=== PATIENT | female | born 1985 | race Hispanic/Latino ===

== ENCOUNTER 2019-09-21 17:19 | Emergency (ER) | payer OTHER, SELFPAY ==
--- NOTE | 2019-09-21 17:40 | ER ---
Nurse's Notes [facility] Name: Chitra Miller Age: 34 yrs Sex: Female : 1985 Arrival Date: 09/21/2019 Time: 17:22 Bed 17 Private MD: Diagnosis: Rash and other nonspecific skin eruption Presentation: 09/21 17:25 Presenting complaint: Patient states: I have a rash on my left leg, I just noticed it. la1 Transition of care: patient was not received from another setting of care. Onset of symptoms was September 21, 2019. Risk Assessment: Do you want to hurt yourself or someone else? Patient reports no desire to harm self or others. Initial Sepsis Screen: Does the patient meet any 2 criteria? No. Patient's initial sepsis screen is negative. Does the patient have a suspected source of infection? No. Patient's initial sepsis screen is negative. Care prior to arrival: None. 17:25 Method Of Arrival: Ambulatory la1 17:25 Acuity: RAYSA 4 la1 Historical: - Allergies: 17:24 No Known Allergies; la1 - PMHx: 17:24 Diabetes - NIDDM; la1 - Immunization history:: Adult Immunizations up to date, Adult Immunizations. - Social history:: Smoking status: Patient/guardian denies using tobacco. - Ebola Screening: : No symptoms or risks identified at this time. Screenin:36 Abuse screen: Denies threats or abuse. Nutritional screening: No deficits noted. em Tuberculosis screening: No symptoms or risk factors identified. Fall Risk None identified. Assessment: 17:26 General: Appears in no apparent distress. comfortable, Behavior is calm, cooperative, em Denies fever. Pain: Denies pain. Neuro: Level of Consciousness is awake, alert, obeys commands, Oriented to person, place, time, situation, Appropriate for age. Cardiovascular: Capillary refill < 3 seconds Patient's skin is warm and dry. Respiratory: Airway is patent Respiratory effort is even, unlabored, Respiratory pattern is regular, symmetrical. Derm: Skin is intact, is healthy with good turgor, Skin is pink, warm \T\ dry. Rash noted that is itchy, papular, on right leg and left leg. Musculoskeletal: Capillary refill < 3 seconds, Range of motion: intact in all extremities. Vital Signs: 17:25 Resp 18; Weight 92.99 kg; Height 5 ft. 3 in. (160.02 cm); la1 17:25 Pulse 89; Resp 16; Temp 98.1; Pulse Ox 100% on R/A; la1 17:26 BP 140 / 74; la1 17:25 Body Mass Index 36.31 (92.99 kg, 160.02 cm) la1 ED Course: 17:22 Patient arrived in ED. mr 17:25 Triage completed. la1 17:25 Arm band placed on left wrist. la1 17:26 Stan Rivas NP is PHCP. pm1 17:26 Claudia Bhardwaj MD is Attending Physician. pm1 17:31 Johan Bailon LVN is Primary Nurse. em 17:36 Patient has correct armband on for positive identification. Placed in gown. Bed in low em position. Call light in reach. 17:36 No provider procedures requiring assistance completed. Patient did not have IV access em during this emergency room visit. Administered Medications: No medications were administered Outcome: 17:39 Discharge ordered by MD. pm1 17:50 Discharged to home ambulatory, with family. em 17:50 Condition: good 17:50 Discharge instructions given to patient, family, Instructed on discharge instructions, follow up and referral plans. medication usage, Demonstrated understanding of instructions, follow-up care, medications, Prescriptions given X 2. 17:50 Patient left the ED. em Signatures: Amber Brody Johan Bailon LVN LVN em Sloan Dangelo RN RN la1 Stan Rivas NP TAR MAN pm1
--- NOTE | 2019-09-21 17:40 | EDPHYS ---
Physician Documentation [facility] Name: Chitra Miller Age: 34 yrs Sex: Female : 1985 Arrival Date: 09/21/2019 Time: 17:22 Bed 17 Private MD: ED Physician Claudia Bhardwaj HPI: 09/21 17:37 This 34 yrs old Female presents to ER via Ambulatory with complaints of Rash. pm1 17:37 The patient's rash thought to be caused by an unknown cause. The rash is located on the pm1 right leg and left leg. The rash can be described as papular. Onset: The symptoms/episode began/occurred just noticed today. Associated signs and symptoms: Pertinent positives: itching, Pertinent negatives: fever, swelling of lips, swelling of throat, swelling of tongue. Severity of symptoms: in the emergency department the symptoms are unchanged. Treatment given at home: none. The patient has not experienced similar symptoms in the past. Historical: - Allergies: 17:24 No Known Allergies; la1 - PMHx: 17:24 Diabetes - NIDDM; la1 - Immunization history:: Adult Immunizations up to date, Adult Immunizations. - Social history:: Smoking status: Patient/guardian denies using tobacco. - Ebola Screening: : No symptoms or risks identified at this time. ROS: 17:37 Constitutional: Negative for fever, chills, and weight loss, Eyes: Negative for injury, pm1 pain, redness, and discharge, ENT: Negative for injury, pain, and discharge, Neck: Negative for injury, pain, and swelling, Cardiovascular: Negative for chest pain, palpitations, and edema, Respiratory: Negative for shortness of breath, cough, wheezing, and pleuritic chest pain, Abdomen/GI: Negative for abdominal pain, nausea, vomiting, diarrhea, and constipation, Back: Negative for injury and pain, MS/Extremity: Negative for injury and deformity. 17:37 Neuro: Negative for headache, weakness, numbness, tingling, and seizure. 17:37 Skin: Positive for rash, of the right leg and left leg, Negative for abscesses. Exam: 17:37 Constitutional: This is a well developed, well nourished patient who is awake, alert, pm1 and in no acute distress. Chest/axilla: Normal chest wall appearance and motion. Nontender with no deformity. No lesions are appreciated. Cardiovascular: Regular rate and rhythm with a normal S1 and S2. No gallops, murmurs, or rubs. Normal PMI, no JVD. No pulse deficits. Respiratory: Lungs have equal breath sounds bilaterally, clear to auscultation and percussion. No rales, rhonchi or wheezes noted. No increased work of breathing, no retractions or nasal flaring. Back: No spinal tenderness. No costovertebral tenderness. Full range of motion. 17:37 Skin: Appearance: normal except for affected area, consistent with folliculitis, on the left leg and right leg. Vital Signs: 17:25 Resp 18; Weight 92.99 kg; Height 5 ft. 3 in. (160.02 cm); la1 17:25 Pulse 89; Resp 16; Temp 98.1; Pulse Ox 100% on R/A; la1 17:26 BP 140 / 74; la1 17:25 Body Mass Index 36.31 (92.99 kg, 160.02 cm) la1 MDM: 17:27 Patient medically screened. pm1 17:37 Data reviewed: vital signs. Data interpreted: Pulse oximetry: on room air is 100 %. pm1 Interpretation: normal. Counseling: I had a detailed discussion with the patient and/or guardian regarding: the historical points, exam findings, and any diagnostic results supporting the discharge/admit diagnosis, the need for outpatient follow up, to return to the emergency department if symptoms worsen or persist or if there are any questions or concerns that arise at home. 17:37 ED course: Patient shaved legs 2 weeks ago with hair appearing to just emerge, pm1 impression folliculitis from ingrown hairs. Administered Medications: No medications were administered Disposition: 09/22 16:48 Co-signature as Attending Physician, Claudia Bhardwaj MD. ma2 Disposition: 09/21/19 17:39 Discharged to Home. Impression: Rash and other nonspecific skin eruption. - Condition is Stable. - Discharge Instructions: Folliculitis. - Prescriptions for Bactroban 2 % Topical Ointment - Apply to affected area 1 application by TOPICAL route every 12 hours; 30 gram. Cephalexin 500 mg Oral Capsule - take 1 capsule by ORAL route every 6 hours for 10 days; 40 capsule. - Medication Reconciliation Form, Thank You Letter, Antibiotic Education, Prescription Opioid Use form. - Follow up: Emergency Department; When: As needed; Reason: Worsening of condition. Follow up: Private Physician; When: 2 - 3 days; Reason: Recheck today's complaints, Continuance of care, Re-evaluation by your physician. - Problem is new. - Symptoms have improved. Signatures: Johan Bailon, FURNITURE DIPPER FURNITURE DIPPER Sloan Sterling RN RN la1 Stan Rivas, FURNACE OPERATOR OIL OR GAS FURNACE OPERATOR OIL OR GAS pm1 Claudia Bhardwaj MD MD ma2 Corrections: (The following items were deleted from the chart) 09/21 17:50 17:39 09/21/2019 17:39 Discharged to Home. Impression: Rash and other nonspecific skin em eruption. Condition is Stable. Forms are Medication Reconciliation Form, Thank You Letter, Antibiotic Education, Prescription Opioid Use. Follow up: Emergency Department; When: As needed; Reason: Worsening of condition. Follow up: Private Physician; When: 2 - 3 days; Reason: Recheck today's complaints, Continuance of care, Re-evaluation by your physician. Problem is new. Symptoms have improved. pm1
[2019-09-21 17:56] VITALS: BP 140/74; TEMP 98.1; O2SAT 100
== END 2019-09-21 17:50 | disposition home or self-care (01) ==
LOC: ER 17:19
DX: R21 Rash and other nonspecific skin eruption (principal)
CPT/HCPCS: 99282

== ENCOUNTER 2020-05-16 12:57 | Emergency (ER) | payer BC, OTHER ==
--- OUTSIDE RECORDS SUMMARY | 2020-05-16 12:59 | XMS REPORT | Continuity of Care Document ---
:1985 Author Organization [facility] t Address [address] [place] [address] Care Team Providers Name Role Phone Tyrel Feliz Attending Clinician Doctor Unassigned, Evans Attending Clinician Unavailable Christian Guzmán DO Attending Clinician Problems This patient has no known problems. Allergies, Adverse Reactions, Alerts This patient has no known allergies or adverse reactions. Medications This patient has no known medications. Procedures This patient has no known procedures. Encounters Start End Encounter Admission Attending Care Care Encounter Source Date/Time Date/Time Type Type Clinicians Facility Department ID 2020-05-13 2020-05-13 Emergency LEVAR Minor [id number] 20:50:15 22:16:00 Tyrel Ma [id number] [place] [id number] [place] [id number] 2020-05-13 2020-05-13 Orders Doctor GEIGER [id number] 00:00:00 00:00:00 Only UnassKAILA benjamin [id number] Evans [facility] [id number] 2020-01-14 2020-01-14 Emergency LEVAR Guzmán [id number] 19:56:52 20:59:00 Vanessa Ma [id number] [place] [id number] [place] [id number] 2020-01-14 2020-01-14 Amanda GEIG[place] [id number] 00:00:00 00:00:00 Only Unassigned, KAILA [id number] Evans [facility] [id number] Results This patient has no known results.
--- OUTSIDE RECORDS SUMMARY | 2020-05-16 12:59 | XMS REPORT | Summary of Care ---
:1985 Author Organization [facility] - Health Address [address] [place] [address] Care Team Providers Name Role Phone Pcp, Patient Does Not Have A Primary Care Provider +[id number] 0-0000 Encounter Details Date Type Department Care Team Description 05/13/2020 Orders Only [facility] Doctor Unassigned, No [address] [facility] [place] [address] [address] [place] [address] Allergies No Known Allergiesdocumented as of this encounter (statuses as of 05/13/2020) Medications Medication Sig Dispensed Refills Start Date End Date Status insulin detemir inject under the 0 Active (LEVEMIR FLEXPEN SC) skin. 25/iron Take by mouth. 0 Active fum/folic/dha (-1 ORAL) documented as of this encounter (statuses as of 05/13/2020) Active Problems No known active problemsdocumented as of this encounter (statuses as of 05/13/2020) Social History Tobacco Use Types Packs/Day Years Used Date Never Assessed Sex Assigned at Date Recorded Not on file Job Start Date Occupation Industry Not on file Not on file Not on file Travel History Travel Start Travel End No recent travel history available. documented as of this encounter Last Filed Vital Signs Not on filedocumented in this encounter Plan of Treatment Health Maintenance Due Date Last Done Comments VARICELLA VACCINES (1 of 2 - 1987 2-dose childhood series) DTaP,Tdap,and Td Vaccines (1 - 1997 Tdap) Depression Screening 1998 PAP SMEAR 2007 INFLUENZA VACCINE (Season Ended) 2020 PNEUMOCOCCAL 0-64 YEARS COMBINED Aged Out No longer eligible based on SERIES patient's age to complete this topic documented as of this encounter Procedures Procedure Name Priority Date/Time Associated Diagnosis Comme nts ASSIGNMENT OF BENEFITS Routine 05/13/2020 8:38 PM CDT documented in this encounter Results Not on filedocumented in this encounter Insurance Payer Benefit Plan Subscriber ID Effective Dates Phone Address Type / Group [facility] [id number] 2016-11/11/ [phone] [address] PPO/POS [place] [id number] [place] [address] documented as of this encounter
--- OUTSIDE RECORDS SUMMARY | 2020-05-16 13:00 | XMS REPORT | Summary of Care ---
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 25/iron Take by mouth. 0 Active fum/folic/dha (-1 ORAL) clindamycin 300 mg Take 1 capsule 21 capsule 0 05/13/202007/2020 Active capsuleIndications: by mouth 3 Cellulitis of lower (three) times extremity, daily for 7 unspecified days. laterality documented as of this encounter (statuses as [...] Travel End No recent travel history available. COVID-19 Exposure Response Date Recorded In the last month, have you been in contact with No / Unsure 05/13/2020 8:44 PM CDT someone who was confirmed or suspected to have Coronavirus / COVID-19? documented as of this encounter Last Filed Vital Signs Vital Sign Reading Time Taken Comments Blood Pressure 135/80 05/13/2020 8:47 PM CDT Pulse 104 05/13/2020 8:47 PM CDT Temperature 37.3 C (99.2 F) 05/13/2020 8:47 PM CDT Respiratory Rate 16 05/13/2020 8:47 PM CDT Oxygen Saturation 98% 05/13/2020 8:47 PM CDT Inhaled Oxygen Concentration - - Weight 88.9 kg (196 lb) 05/13/2020 8:47 PM CDT Height 160 cm (5' 3") 05/13/2020 8:47 PM CDT Body Mass Index 34.72 05/13/2020 8:47 PM CDT documented in this encounter Discharge Instructions Tyrel Ryan FNP - 05/13/2020DIAGNOSIS 1. Rash - Ecezema 2. Cellulitis NO LIFE-THREATENING FINDINGS ON TODAY'S EXAM. PROCEDURES IN THE ER TODAY: None MEDICATIONS ADMINISTERED IN THE ER TODAY: Benadryl YOUR PRESCRIPTIONS AND [id number] MEDICATION RECOMMENDATIONS: Clindamycin You can use over the counter benadryl for itching SPECIAL CARE INSTRUCTIONS: Keep the skin clean, use moisturizer to help itching as dry skin make itching worse Take medications with food FOLLOW-UP RECOMMENDATIONS: RECOMMEND FOLLOW-UP WITH ob and gyne specialist and dermatology in 1 week TO FOLLOW-UP WITHIN THE [facility], TRY THESE OPTIONS (CLINIC APPOINTMENTS AVAILABLE ON [id number] BASIS): 1. SCHEDULE AN APPOINTMENT ONLINE AT WWW[facility] 2. OR CALL THE [facility] ACCESS C[facility] AT OR 3. OR CALL YOUR [facility] PHYSICIAN'S OFFICE DIRECTLY IF YOU ARE ALREADY AN ESTABLISHED [facility] PATIENT. OR, YOU MAY FOLLOW-UP WITH A PROVIDER OF YOUR CHOICE, SUCH : 1. A PHYSICIAN OF YOUR CHOICE 2. [facility], . LOCATIONS IN [facility] ER 3. [facility], [address] [place], [place]; [phone] RETURN TO ER FOR WORSENING OF SYMPTOMS. Fever, worsening pain, swelling or itching or any other concerning symptoms./ AttachmentsThe following attachments cannot be sent through Care Everywhere. Cellulitis, Discharge Instructions for (Libyan)Skin Infection, Cellulitis (Libyan)Dermatitis (Eczema),Managing Atopic (Libyan)documented in this encounter Plan of Treatment Name Type Priority Associated Diagnoses Order S chedule WOUND/ASPIRATE OR LAB LIZBETH Cellulitis of lower ONC E for 1 Occurrences ABSCESS CULTURE extremity, unspecified st arting 05/13/2020 until laterality 05/13/2020 WOUND CULTURE LAB LIZBETH Cellulitis of lower Once fo r 1 Occurrences extremity, unspecified start ing 05/13/2020 until laterality 05/13/2020 Health Maintenance Due Date Last Done Comments VARICELLA VACCINES ( of - 1987 2-dose childhood series) DTaP,Tdap,and Td Vaccines ( - 1997 Tdap) Depression Screening 1998 PAP SMEAR 2007 INFLUENZA VACCINE (Season Ended) 2020 PNEUMOCOCCAL 0-64 YEARS COMBINED Aged Out No longer eligible based on SERIES patient's age to complete this topic documented as of this encounter Results Not on filedocumented in this encounter Visit Diagnoses Diagnosis Rash in adult - Primary Cellulitis of lower extremity, unspecifi ed laterality documented in this encounter Administered Medications Medication Order MAR Action Action Date Dose Rate Site diphenhydrAMINE (BENADRYL) tablet Given 05/13/2020 10:05 PM CDT 25 mg 25 mg 25 mg, Oral, ONCE, 1 dose, Monika 05/13/20 at 2145, LIZBETH documented in this encounter Insurance Payer Benefit Plan Subscriber ID Effective Dates Phone Address Type / Group [facility] [id number] 2016- [phone] [address] PPO/POS [place] [id number] [place] [address] . (Home) [address] [place] [address] documented as of this encounter
--- NOTE | 2020-05-16 13:42 | EDPHYS ---
Physician Documentation [facility] Name: Chitra Miller Age: 35 yrs Sex: Female : 1985 Arrival Date: 05/16/2020 Time: 13:01 Bed 6 Private MD: ED Physician Claudia Bhardwaj HPI: 05/16 13:39 This 35 yrs old Female presents to ER via Ambulatory with complaints of Rash. ma2 13:39 The patient's rash thought to be caused by Eczema. The rash is located on the body ma2 diffusely. The rash can be described as crusted. Onset: The symptoms/episode began/occurred gradually, 2 day(s) ago. Associated signs and symptoms: Pertinent negatives: burning sensation, fever, swelling of lips, swelling of tongue. Severity of symptoms: At their worst the symptoms were mild in the emergency department the symptoms are unchanged. The patient has not experienced similar symptoms in the past. Historical: - Allergies: 13:15 No Known Allergies; ph - Home Meds: 13:15 insulin [Active]; ph - PMHx: 13:15 Diabetes - IDDM; ph - PSHx: 13:15 ; ph - Immunization history:: Adult Immunizations unknown. - Social history:: Smoking status: Patient denies any tobacco usage or history of. Patient/guardian denies using alcohol, The patient lives with family. - Family history:: not pertinent. ROS: 13:39 Constitutional: Negative for fever, chills, and weight loss. ma2 13:39 All other systems are negative. Exam: 13:39 Constitutional: This is a well developed, well nourished patient who is awake, alert, ma2 and in no acute distress. ENT: Nares patent. No nasal discharge, no septal abnormalities noted. Tympanic membranes are normal and external auditory canals are clear. Oropharynx with no redness, swelling, or masses, exudates, or evidence of obstruction, uvula midline. Mucous membranes moist. Neck: Trachea midline, no thyromegaly or masses palpated, and no cervical lymphadenopathy. Supple, full range of motion without nuchal rigidity, or vertebral point tenderness. No Meningismus. Chest/axilla: Normal chest wall appearance and motion. Nontender with no deformity. No lesions are appreciated. Cardiovascular: Regular rate and rhythm with a normal S1 and S2. No gallops, murmurs, or rubs. Normal PMI, no JVD. No pulse deficits. Respiratory: Lungs have equal breath sounds bilaterally, clear to auscultation and percussion. No rales, rhonchi or wheezes noted. No increased work of breathing, no retractions or nasal flaring. Abdomen/GI: Soft, non-tender, with normal bowel sounds. No distension or tympany. No guarding or rebound. No evidence of tenderness throughout. Back: No spinal tenderness. No costovertebral tenderness. Full range of motion. Skin: bilateral anterior thigh papular rash that is raised red and crusted multiple, scattered [id number] each.. Warm, dry with normal turgor. Normal color with no rashes, no lesions, and no evidence of cellulitis. MS/ Extremity: Pulses equal, no cyanosis. Neurovascular intact. Full, normal range of motion. Neuro: Awake and alert, GCS 15, oriented to person, place, time, and situation. Cranial nerves II-XII grossly intact. Motor strength 5/5 in all extremities. Sensory grossly intact. Cerebellar exam normal. Normal gait. Vital Signs: 13:10 BP 128 / 82; Pulse 91; Resp 18; Temp 97.6; Pulse Ox 98% on R/A; Weight 88.9 kg; Height ph 5 ft. 2 in. (157.48 cm); 14:09 BP 118 / 78; Pulse 92; Resp 18; Temp 98.0; Pulse Ox 99% on R/A; ph 13:10 Body Mass Index 35.85 (88.90 kg, 157.48 cm) ph MDM: 13:03 Patient medically screened. ma2 13:39 Differential diagnosis: impetigo, allergic reaction. Data reviewed: vital signs, nurses ma2 notes. Counseling: I had a detailed discussion with the patient and/or guardian regarding: the historical points, exam findings, and any diagnostic results supporting the discharge/admit diagnosis, the presence of at least one elevated blood pressure reading (>120/80) during this emergency department visit, the need for outpatient follow up. Response to treatment: the patient's symptoms have markedly improved after treatment. Administered Medications: No medications were administered Disposition: 05/16/20 13:42 Discharged to Home. Impression: Rash and other nonspecific skin eruption. - Condition is Stable. - Discharge Instructions: Rash, [id number]. - Prescriptions for lidocaine HCl 3 % Topical cream - apply 1 application by TOPICAL route 3 times per day; 3 tube. Augmentin 875- 125 mg Oral Tablet - take 1 tablet by ORAL route every 12 hours for 10 days; 20 tablet. Bactroban 2 % Topical Ointment - Apply to affected area 1 application by TOPICAL route every 12 hours; 15 gram. Benadryl 25 mg Oral Capsule - take 1 capsule by ORAL route every 6 hours As needed; 30 tablet. - Work release form, Medication Reconciliation Form, Thank You Letter, Antibiotic Education, Prescription Opioid Use form. - Follow up: Private Physician; When: Tomorrow; Reason: Continuance of care. Signatures: Patricia Pearce RN RN ph Alzahri, Mohammad, MD MD ma2 Corrections: (The following items were deleted from the chart) 14:09 13:42 05/16/2020 13:42 Discharged to Home. Impression: Rash and other nonspecific skin ph eruption. Condition is Stable. Prescriptions for lidocaine HCl 3 % Topical cream - apply 1 application by TOPICAL route 3 times per day; 3 tube, Augmentin 875-125 mg Oral Tablet - take 1 tablet by ORAL route every 12 hours for 10 days; 20 tablet, Bactroban 2 % Topical Ointment - Apply to affected area 1 application by TOPICAL route every 12 hours; 15 gram, Benadryl 25 mg Oral Capsule - take 1 capsule by ORAL route every 6 hours As needed; 30 tablet. and Forms are Medication Reconciliation Form, Thank You Letter, Antibiotic Education, Prescription Opioid Use. Follow up: Private Physician; When: Tomorrow; Reason: Continuance of care. ma2
--- NOTE | 2020-05-16 13:42 | ER ---
Nurse's Notes [facility] Name: Chitra Miller Age: 35 yrs Sex: Female : 1985 Arrival Date: 05/16/2020 Time: 13:01 Bed 6 Private MD: Diagnosis: Rash and other nonspecific skin eruption Presentation: 05/16 13:10 Chief complaint: Patient states: Itchy rash to bilateral thighs x approx 3 weeks, pt ph states, " I thought it was eczema and I have tried some OTC creams but nothing is helping and it's so uncomfortable." Red raised rash to bilateral thighs, open areas and scabbed areas noted, pt denies fever, N/V, is 26 weeks . Coronavirus screen: Patient denies a cough. Patient denies shortness of breath or difficulty breathing. Patient denies measured and/or subjective temperature greater than 100.4F prior to today's visit. Patient denies travel on a cruise ship or to a country the [facility] currently lists as an affected area. Patient denies contact with known and/or suspected case of COVID-19. Ebola Screen: No symptoms or risks identified at this time. Initial Sepsis Screen: Does the patient meet any 2 criteria? No. Patient's initial sepsis screen is negative. Does the patient have a suspected source of infection? No. Patient's initial sepsis screen is negative. Risk Assessment: Do you want to hurt yourself or someone else? Patient reports no desire to harm self or others. Onset of symptoms was May 16, 2020. 13:10 Method Of Arrival: Ambulatory ph 13:10 Acuity: RAYSA 4 ph Historical: - Allergies: 13:15 No Known Allergies; ph - Home Meds: 13:15 insulin [Active]; ph - PMHx: 13:15 Diabetes - IDDM; ph - PSHx: 13:15 ; ph - Immunization history:: Adult Immunizations unknown. - Social history:: Smoking status: Patient denies any tobacco usage or history of. Patient/guardian denies using alcohol, The patient lives with family. - Family history:: not pertinent. Screenin:17 Abuse screen: Denies threats or abuse. Denies injuries from another. Nutritional ph screening: No deficits noted. Tuberculosis screening: No symptoms or risk factors identified. Fall Risk None identified. Assessment: 13:16 General: Appears in no apparent distress. Behavior is calm, cooperative, appropriate ph for age, Denies fever, feeling ill. Pain: Complains of pain in right leg and back of left leg. Neuro: Level of Consciousness is awake, alert, obeys commands, Oriented to person, place, time, situation. Cardiovascular: Capillary refill < 3 seconds in bilateral fingers Patient's skin is warm and dry. Respiratory: Airway is patent Respiratory effort is even, unlabored. Derm: Skin is healthy with good turgor, Skin is pink, warm \\T\\ dry. Rash noted that is itchy, red, raised, on right leg and left leg. Musculoskeletal: Circulation, motion, and sensation intact. Range of motion: intact in all extremities. 14:08 Reassessment: Patient appears in no apparent distress at this time. Patient and/or ph family updated on plan of care and expected duration. Pain level reassessed. Patient is alert, oriented x 3, equal unlabored respirations, skin warm/dry/pink. Vital Signs: 13:10 BP 128 / 82; Pulse 91; Resp 18; Temp 97.6; Pulse Ox 98% on R/A; Weight 88.9 kg; Height ph 5 ft. 2 in. (157.48 cm); 14:09 BP 118 / 78; Pulse 92; Resp 18; Temp 98.0; Pulse Ox 99% on R/A; ph 13:10 Body Mass Index 35.85 (88.90 kg, 157.48 cm) ph ED Course: 13:01 Patient arrived in ED. mr 13:03 Claudia Bhardwaj MD is Attending Physician. ma2 13:04 Patricia Pearce, MIGNON is Primary Nurse. ph 13:14 Triage completed. ph 13:15 Arm band placed on Patient placed in an exam room, on a stretcher. ph 13:17 Patient has correct armband on for positive identification. Bed in low position. Call ph light in reach. Side rails up X 1. Pulse ox on. NIBP on. Door closed. Noise minimized. Warm blanket given. 13:17 No provider procedures requiring assistance completed. Patient did not have IV access ph during this emergency room visit. Administered Medications: No medications were administered Outcome: 13:42 Discharge ordered by . ma2 14:08 Discharged to home ambulatory. ph 14:08 Condition: good 14:08 Discharge instructions given to patient, Instructed on discharge instructions, follow up and referral plans. medication usage, Demonstrated understanding of instructions, follow-up care, medications, Prescriptions given X 4. 14:09 Patient left the ED. ph Signatures: Amber Brody Patricia RN RN ph Claudia Bhardwaj MD MD ma2
[2020-05-16 14:17] VITALS: BP 118/78; TEMP 98; O2SAT 99
== END 2020-05-16 14:09 | disposition home or self-care (01) ==
LOC: ER 12:57
DX: R21 Rash and other nonspecific skin eruption (principal); E11.9 Type 2 diabetes mellitus without complications; Z79.4 Long term (current) use of insulin
CPT/HCPCS: 99283